=== PATIENT | female | born 1990 | race Two or more races ===

== ENCOUNTER 2016-11-02 10:15 | Observation (INO) | payer MEDICAID ==
[~2016-11-02 10:15] MED LIST: FER325T PO; PREN-96 PO
[2016-11-02 11:21] LABS: Basophils # (auto) 0 uL; Basophils % (auto) 0.2 % (0.0-2.0); Eosinophils # (auto) 0 uL; Eosinophils % (auto) 0.7 % (0.0-7.0); Hematocrit 34.5 % (36.0-46.0); Hemoglobin 11.6 g/dL (12.2-16.2); Lymphocytes # (auto) 1.1 uL; Lymphocytes % (auto) 19.6 % (10.0-50.0); Mean Corpuscular Hemoglobin 28.6 pg (28.0-32.0); Mean Corpuscular Hgb Conc. 33.7 g/dL (32.0-36.0); Mean Corpuscular Volume 84.8 fL (80.0-100.0); Mean Platelet Volume 9.8 fL (7.4-10.4); Monocytes # (auto) 0.4 uL; Monocytes % (auto) 7.1 % (0.0-12.0); Neutrophils # (auto) 4.1 uL; Neutrophils % (auto) 72.4 % (37.0-80.0); Red Cell Distribution Width 14.3 % (11.6-16.0); SUSPECT VIEW TRANSMISSION; White Blood Cell 5.7 10^3/uL (4.4-10.8)
[2016-11-02 11:33] LABS: Platelet Count (auto) 116 10^3/uL (140-450)
[2016-11-02] MEDS ORDERED: TERBUTALINE SULFATE 1 MG/ML 1ML VIAL SC ONE (12:01)
== END 2016-11-02 12:25 | disposition home or self-care (01) | DRG 566 ==
LOC: LDRP 10:15
PROVIDERS: ADMIT Specialist; ATTEND Specialist
DX: O62.9 Abnormality of forces of labor, unspecified (principal); O48.0 Post-term pregnancy; Z3A.40 40 weeks gestation of pregnancy
CPT/HCPCS: 36415; 59025; 76818; 81002; 85025; G0378

== ENCOUNTER 2016-11-04 14:25 | Observation (INO) | payer MEDICAID | END 2016-11-04 17:25 | disposition home or self-care (01) | DRG 566 | LOC: LDRP 14:25 | PROVIDERS: ADMIT Obstetrics & Gynecology; ATTEND Obstetrics & Gynecology | DX: O48.0 Post-term pregnancy (principal); Z3A.40 40 weeks gestation of pregnancy | CPT/HCPCS: 59025; 76818; 81002; G0378 ==

== ENCOUNTER 2016-11-04 22:46 | Inpatient (IN) | payer MEDICAID ==
[~2016-11-04] VITALS: Ht 157.5 cm; Wt 71.7 kg
[2016-11-04] MEDS ORDERED: LACTATED RINGER'S 1,000 ML IV SCH (22:56)
[2016-11-04] MEDS ORDERED: LACT. RINGERS/OXYTOCIN 20UNITS 1,000 ML IV SCH (22:56)
[2016-11-04] MEDS ORDERED: DERMOPLAST 60ML BOTTLE TOP PRN (23:00)
[2016-11-04] MEDS ORDERED: PHISODERM TOP SOLN 240ML BTL TOP PRN (23:00)
[2016-11-04] MEDS ORDERED: METHYLERGONOVINE MALEATE 0.2 MG/ML AMP IM PRN (23:00)
[2016-11-04] MEDS ORDERED: WITCH HAZEL-GLYCERIN PAD TOP PRN (23:00)
[2016-11-04] MEDS ORDERED: NALBUPHINE HCL 10 MG/1ml INJECTION IV PRN (23:00)
[2016-11-04] MEDS ORDERED: LIDOCAINE 2%HCL (LOCAL ANESTH.) INJ 20ML MDV IJ PRN (23:00)
[2016-11-04 23:28] LABS: Basophils # (auto) 0 uL; DEFINITIVE VIEW TRANSMISSION; Eosinophils # (auto) 0 uL; SUSPECT VIEW TRANSMISSION
[2016-11-04 23:32] LABS: Basophils % (auto) 0.5 % (0.0-2.0); Eosinophils % (auto) 0.4 % (0.0-7.0); Hematocrit 33.8 % (36.0-46.0); Hemoglobin 11.1 g/dL (12.2-16.2); Lymphocytes # (auto) 1.4 uL; Lymphocytes % (auto) 18.2 % (10.0-50.0); Mean Corpuscular Hemoglobin 27.6 pg (28.0-32.0); Mean Corpuscular Hgb Conc. 32.9 g/dL (32.0-36.0); Mean Corpuscular Volume 83.9 fL (80.0-100.0); Monocytes # (auto) 0.5 uL; Monocytes % (auto) 6.6 % (0.0-12.0); Neutrophils # (auto) 5.9 uL; Neutrophils % (auto) 74.3 % (37.0-80.0); Red Cell Distribution Width 12.9 % (11.6-16.0); White Blood Cell 7.8 10^3/uL (4.4-10.8)
[2016-11-04 23:33] LABS: Mean Platelet Volume 9.1 fL (7.4-10.4); Platelet Count (auto) 104 10^3/uL (140-450)
[2016-11-04 23:39] LABS: INR 0.9 (0.9-1.15); Prothrombin Time 9.8 sec (9.37-12.3)
[2016-11-04 23:46] LABS: Albumin 2.8 g/dL (3.4-5.0); BUN/Creatinine Ratio 12.5; Calcium 8.7 mg/dL (8.5-10.1); Potassium 3.4 mmol/L (3.5-5.1)
[2016-11-04 23:48] LABS: Bilirubin, Total 0.2 mg/dL (0.2-1.0); Total Protein 6.8 g/dL (6.4-8.2)
[2016-11-05 01:54] LABS: Urine RBC None Seen /hpf (0 - 4)
[2016-11-05 02:15] LABS: Urine Bilirubin Negative (Negative); Urine Blood Negative /uL (Negative); Urine Color Yellow (Yellow); Urine Glucose Normal (Normal); Urine Ketone Negative (Negative); Urine Mucus FEW (None Seen); Urine Nitrite Negative (Negative)
[2016-11-05 16:29] VITALS: BP 97/55
[2016-11-05 18:45] VITALS: BP 100/59
[2016-11-05 23:30] VITALS: BP 100/59
[2016-11-05] MEDS: IBUPROFEN 600 MG TAB PO PRN (23:37)
[2016-11-06 04:00] VITALS: BP_SYST 95; BP_SYST 96; BP_DIAS 53; BP_DIAS 55
[2016-11-06] MEDS: IBUPROFEN 600 MG TAB PO PRN (07:00)
[2016-11-06] MEDS ORDERED: TETANUS-DIPTH-ACEL PERTUSSIS 0.5ML SYRG IM ONE (07:15)
[2016-11-06 08:10] VITALS: BP 96/46
== END 2016-11-06 10:55 | disposition home or self-care (01) | DRG 560 ==
LOC: LDRP 22:46
PROVIDERS: ADMIT Obstetrics & Gynecology; ATTEND Obstetrics & Gynecology
PROC: 10E0XZZ Delivery of Products of Conception, External Approach (ICD-10-PCS; principal; 2016-11-05)
PROC: 10907ZC Drainage of Amniotic Fluid, Therapeutic from Products of Conception, Via Natural or Artificial Opening (ICD-10-PCS; 2016-11-05)
DX: O69.81X0 Labor and delivery complicated by cord around neck, without compression, not applicable or unspecified (principal); O48.0 Post-term pregnancy; O62.2 Other uterine inertia; Z37.0 Single live birth; Z3A.40 40 weeks gestation of pregnancy; Z23 Encounter for immunization
CPT/HCPCS: 36415; 59025; 59409; 80053; 81001; 85025; 85610; 85730; 86850; 86900; 86901; 96361; 96365; 96366; 96372; 96375; J2590

== ENCOUNTER 2023-03-24 01:16 | Emergency (ER) | payer MEDICAID ==
[~2023-03-24] VITALS: Ht 162.6 cm; Wt 77.3 kg
[2023-03-24 01:31] VITALS: BP 113/67; PULSE 75; RESP 16; TEMP 97.3; O2SAT 98
[2023-03-24] MEDS ORDERED: methylPREDNISolone SOD SUCC 125 MG/2 ML VL IM ONE (02:00)
[2023-03-24] MEDS ORDERED: diphenhdrAMINE HCL 50 MG/1 ML VL IM ONE (02:00)
[2023-03-24] MEDS ORDERED: FAMOTIDINE 20 MG TAB PO ONE (02:00)
[2023-03-24] MEDS ORDERED: PRED20TA2 PO (02:07)
[2023-03-24] MEDS ORDERED: FAMO20TA10 PO (02:07)
[2023-03-24] MEDS ORDERED: DIPH25CA66 PO (02:07)
== END 2023-03-24 02:38 | disposition home or self-care (01) ==
LOC: ER 01:21
DX: L50.0 Allergic urticaria (principal); Z79.899 Other long term (current) drug therapy
CPT/HCPCS: 96372; 99284; J1200; J2930